=== PATIENT | female | born 1970 | race African-American/Black ===

== ENCOUNTER 2024-04-23 15:05 | Emergency (ER) | payer BC, OTHER ==
[~2024-04-23] VITALS: Ht 154.9 cm; Wt 90.0 kg
[2024-04-23 15:09] VITALS: PULSE 90
[2024-04-23 15:21] VITALS: BP 134/81; TEMP 97.8; O2SAT 99
[2024-04-23 16:54] VITALS: RESP 17
[2024-04-23] MEDS: KETOROLAC 30MG/ML VIAL IM ONE (16:54)
[2024-04-23] MEDS: LIDOCAINE 5% PATCH TOP SCH (16:54)
[2024-04-23] MEDS: CYCLOBENZAPRINE 10MG TABLET PO ONE (16:54)
[2024-04-23] MEDS ORDERED: DICL100G32 TP (17:22)
[2024-04-23] MEDS ORDERED: CYCL10TA21 MT (17:22)
[2024-04-23] MEDS ORDERED: NAPR220C61 MT (17:22)
== END 2024-04-23 18:12 | disposition home or self-care (01) ==
LOC: ER 15:05
DX: S13.4XXA Sprain of ligaments of cervical spine, initial encounter (principal); V49.9XXA Car occupant (driver) (passenger) injured in unspecified traffic accident, initial encounter; Y93.89 Activity, other specified; Y92.89 Other specified places as the place of occurrence of the external cause; Y99.8 Other external cause status
CPT/HCPCS: 99283; 96372; J1885